=== PATIENT | male | born 1965 | race Caucasian/White ===

== ENCOUNTER 2023-10-06 16:00 | Inpatient (IN) | payer MEDICAID, OTHER ==
[~2023-10-06] VITALS: Ht 177.8 cm; Wt 74.8 kg
[2023-10-06 17:20] LABS: BASOPHILS % (AUTO) 1.4 % (0.0-2.0); EOSINOPHILS % (AUTO) 0.5 % (1.0-6.0); HEMATOCRIT 43.1 % (41-53); HEMOGLOBIN 14.8 g/dL (13.5-17.5); LYMPHOCYTES # (AUTO) 2.2 K/uL (1.0-4.8); LYMPHOCYTES % (AUTO) 32.2 % (22.0-44.0); MEAN CORPUSCULAR HEMOGLOBIN 31.9 pg (26.0-34.0); MEAN CORPUSCULAR HGB CONC 34.3 G/dL (31.0-37.0); MEAN CORPUSCULAR VOLUME 93 fL (80-100); MONOCYTES # (AUTO) 0.6 K/uL (0.1-1.0); NEUTROPHILS % (AUTO) 57.9 % (40.0-70.0); PLATELET COUNT (AUTO) 205 K/uL (150-450); RED BLOOD CELL COUNT(AUTO) 4.62 MIL/uL (4.50-5.90); RED CELL DISTRIBUTION WIDTH 13.5 % (11.5-14.5)
[2023-10-06] MEDS: OLANZapine 5 MG RAPDIS TABLET PO PRN (17:21)
[2023-10-06] MEDS: LORazepam 2 MG TABLET PO ONE (17:21)
[2023-10-06 17:31] LABS: ANION GAP 11 mmol/L (8-16); CALCIUM, TOTAL 8.6 mg/dL (8.8-10.5); CARBON DIOXIDE 26 mmol/L (22-29); CHLORIDE 104 mmol/L (98-107); CREATININE 0.75 mg/dL (0.60-1.30); GLOMERULAR FILTR. RATE CALC > 60 mL/min (>60); GLUCOSE,RANDOM 84 mg/dL (70-110); POTASSIUM 4.7 mmol/L (3.5-5.1); SODIUM SERUM 140 mmol/L (136-145); UREA NITROGEN, BLOOD 16 mg/dL (7-18)
[2023-10-06 17:37] LABS: ALANINE AMINOTRANSFERASE 33 U/L (12-78); ALKALINE PHOSPHATASE 75 U/L (46-116); ASPARTATE AMINOTRANSFERASE 41 U/L (15-37); BILIRUBIN,TOTAL 0.6 mg/dL (0.1-1.0); LIPASE 18 U/L (16-77); TOTAL PROTEIN, SERUM 7.7 g/dL (6.4-8.2)
[2023-10-06 17:38] LABS: ALCOHOL, BLOOD (SERUM) < 3 mg/dL (0-10)
[2023-10-06 17:39] LABS: LACTIC ACID 1.6 mmol/L (0.4-2.0)
[2023-10-06 17:55] LABS: APPEARANCE,URINE CLEAR (CLEAR); BILIRUBIN,URINE NEGATIVE (NEGATIVE); COLOR,URINE YELLOW (YELLOW); GLUCOSE, URINE (UA) NEGATIVE (NEGATIVE); KETONES,URINE NEGATIVE (NEGATIVE); LEUKOCYTE ESTERASE ,URINE NEGATIVE (NEGATIVE); NITRATE,URINE NEGATIVE (NEGATIVE); OCCULT BLOOD,URINE NEGATIVE (NEGATIVE); PROTEIN,URINE NEGATIVE (NEGATIVE); SPECIFIC GRAVITIY, URINE 1.024 (1.003-1.030); UROBILINOGEN,URINE <=1.0 mg/dL (<=1.0)
[2023-10-06 18:02] LABS: AMPHET/METH SCREEN,URINE NEGATIVE (NEGATIVE); BARBITURATE SCREEN, URINE POSITIVE (NEGATIVE); BENZODIAZEPINES SCREEN,URINE NEGATIVE (NEGATIVE); CANNABINOID SCREEN,URINE NEGATIVE (NEGATIVE); COCAINE SCREEN,URINE NEGATIVE (NEGATIVE); METHADONE SCREEN, URINE NEGATIVE (NEGATIVE); OPIATE SCREEN,URINE NEGATIVE (NEGATIVE); PHENCYCLIDINE SCREEN,URINE NEGATIVE (NEGATIVE)
[2023-10-06 18:03] LABS: ALCOHOL, URINE DRUG SCREEN NEGATIVE (NEGATIVE)
[2023-10-06 19:09] LABS: COVID AG,FIA SOURCE NASAL SWAB
[2023-10-06 19:47] LABS: SARS-COV2 (COVID) ANTIGEN,FIA Negative (Negative)
[2023-10-07] MEDS ORDERED: MAGNESIUM HYDROXIDE SUSPENSION 30 ML UDCUP PO PRN (12:45)
[2023-10-07] MEDS ORDERED: IBUPROFEN 400 MG TABLET PO PRN (12:45)
[2023-10-07] MEDS ORDERED: NICOTINE 14 MG/24 HOUR PATCH TD PRN (12:45)
[2023-10-07] MEDS ORDERED: GuaiFENesin/D-METHORPHAN [SUGAR-FREE] 200-20MG/10 ML SYRUP UDCUP PO PRN (12:45)
[2023-10-07] MEDS ORDERED: LOPERAMIDE HCL 2 MG CAPSULE PO PRN (12:45)
[2023-10-07] MEDS ORDERED: ACETAMINOPHEN 325 MG TABLET PO PRN (12:45)
[2023-10-07] MEDS ORDERED: ALBUTEROL SULFATE HFA 90 MCG/PUFF 8 GM INHALER IH PRN (12:45)
[2023-10-07] MEDS ORDERED: CloNIDine HCL 0.1 MG TABLET PO PRN (12:45)
[2023-10-07] MEDS ORDERED: PETROLATUM,WHITE 28 GM JELLY TP PRN (12:45)
[2023-10-07] MEDS ORDERED: DOCUSATE SODIUM 100 MG CAPSULE PO PRN (12:45)
[2023-10-07] MEDS ORDERED: MAG HYDROX/ALUMINUM HYD/SIMETH ES 30 ML SUSPENSION UDCUP PO PRN (12:45)
[2023-10-07] MEDS ORDERED: ONDANSETRON HCL 4 MG TABLET PO PRN (12:45)
[2023-10-07] MEDS: LORazepam 2 MG TABLET PO PRN (12:58)
[2023-10-07 14:36] VITALS: BP 120/87; PULSE 105; RESP 18; TEMP 98
[2023-10-07 17:02] VITALS: BP 123/66; PULSE 75; RESP 16; TEMP 97.9
[2023-10-07 17:08] VITALS: BP 123/66; PULSE 75; RESP 16; TEMP 97.9; O2SAT 95
[2023-10-07 20:36] VITALS: BP 108/75; PULSE 84; RESP 16; TEMP 97.8; O2SAT 95
[2023-10-07 21:24] VITALS: BP 108/75; PULSE 84; RESP 16; TEMP 97.1
[2023-10-08 08:11] VITALS: BP 113/65; PULSE 74; RESP 17; TEMP 97.8; O2SAT 98
[2023-10-08 08:32] LABS: BASOPHILS % (AUTO) 0.9 % (0.0-2.0); EOSINOPHILS % (AUTO) 2.2 % (1.0-6.0); HEMATOCRIT 42.9 % (41-53); HEMOGLOBIN 15.3 g/dL (13.5-17.5); LYMPHOCYTES # (AUTO) 1.8 K/uL (1.0-4.8); LYMPHOCYTES % (AUTO) 32.6 % (22.0-44.0); MEAN CORPUSCULAR HEMOGLOBIN 32.7 pg (26.0-34.0); MEAN CORPUSCULAR HGB CONC 35.7 G/dL (31.0-37.0); MEAN CORPUSCULAR VOLUME 92 fL (80-100); MONOCYTES # (AUTO) 0.5 K/uL (0.1-1.0); MONOCYTES % (AUTO) 9.2 % (2.0-9.0); NEUTROPHILS % (AUTO) 55.1 % (40.0-70.0); PLATELET COUNT (AUTO) 215 K/uL (150-450); RED BLOOD CELL COUNT(AUTO) 4.68 MIL/uL (4.50-5.90); RED CELL DISTRIBUTION WIDTH 13.3 % (11.5-14.5); WHITE BLOOD COUNT (AUTO) 5.4 K/uL (4.5-11.0)
[2023-10-08 08:38] LABS: HEMOGLOBIN A1C 5.4 % (3.8-5.6)
[2023-10-08 08:56] LABS: CHOL/HDL RATIO 2.2 (4.2-7.3); THYROID STIMULATING HORMONE 1.11 uIU/mL (0.36-3.74)
[2023-10-08] MEDS: SERTRALINE HCL 50 MG TABLET PO SCH (09:48)
[2023-10-08 16:32] VITALS: BP 104/76; PULSE 82; RESP 18; TEMP 98.1
[2023-10-08 20:14] VITALS: BP 107/56; PULSE 77; RESP 18; TEMP 97.3; O2SAT 97
[2023-10-08] MEDS: ZOLPIDEM TARTRATE 10 MG TABLET PO PRN (21:17)
[2023-10-09 08:45] VITALS: BP 107/60; PULSE 68; RESP 17; TEMP 97.9; O2SAT 97
[2023-10-09] MEDS: APIXABAN 5 MG TABLET PO SCH (17:13)
[2023-10-09 20:20] VITALS: BP 115/65; PULSE 61; RESP 18; TEMP 97.6; O2SAT 95
[2023-10-09] MEDS: ATORVASTATIN CALCIUM 10 MG TABLET PO SCH (21:11)
[2023-10-10 08:14] VITALS: BP 123/76; PULSE 89; RESP 19; TEMP 97.7; O2SAT 96
[2023-10-10] MEDS: TAMSULOSIN HCL 0.4 MG CAPSULE PO SCH (08:21)
[2023-10-10] MEDS: HydrOXYzine PAMOATE 50 MG CAPSULE PO PRN (16:03)
[2023-10-10] MEDS: BusPIRone HCL 10 MG TABLET PO SCH (16:08)
[2023-10-10] MEDS: RisperiDONE 1 MG TABLET PO SCH (16:08)
[2023-10-10] MEDS: GABAPENTIN 300 MG CAPSULE PO SCH (16:08)
[2023-10-10 20:21] VITALS: BP 147/82; PULSE 79; RESP 17; TEMP 97.6; O2SAT 97
[2023-10-11 08:17] VITALS: BP 110/73; PULSE 88; RESP 18; TEMP 97.2; O2SAT 95
[2023-10-11] MEDS: GABAPENTIN 300 MG CAPSULE PO SCH (13:17)
[2023-10-11] MEDS ORDERED: GABA-1181 PO (15:15)
[2023-10-11] MEDS ORDERED: RISP-31 PO (15:17)
[2023-10-11] MEDS ORDERED: BUSP10TA23 PO (15:17)
[2023-10-11] MEDS ORDERED: SERT-158 PO (15:17)
[2023-10-11] MEDS ORDERED: TAMS0.4C94 PO (15:19)
[2023-10-11] MEDS ORDERED: ATOR10TA PO (15:20)
[2023-10-11] MEDS ORDERED: APIX5TAB PO (15:20)
[2023-10-12] MEDS ORDERED: RISP1TAB48 PO (08:25)
[2023-10-12] MEDS ORDERED: GABA-1181 PO (08:25)
[2023-10-12] MEDS ORDERED: TAMS0.4C94 PO (08:25)
[2023-10-12] MEDS ORDERED: ATOR10TA69 PO (08:25)
[2023-10-12] MEDS ORDERED: BUSP10TA23 PO (08:25)
[2023-10-12] MEDS ORDERED: APIX5TAB PO (08:25)
[2023-10-12] MEDS ORDERED: SERT-439 PO (08:25)
== END 2023-10-11 16:30 | disposition home or self-care (01) | DRG 753 ==
LOC: EMS 16:00 → B2X 10-07 11:12 → B2S 10-07 16:36
PROVIDERS: ADMIT Psychiatry & Neurology Child & Adolescent Psychiatry; ATTEND Psychiatry & Neurology Child & Adolescent Psychiatry
PROC: GZHZZZZ Group Psychotherapy (ICD-10-PCS; principal; 2023-10-08)
PROC: GZ52ZZZ Individual Psychotherapy, Cognitive (ICD-10-PCS; 2023-10-08)
DX: F31.4 Bipolar disorder, current episode depressed, severe, without psychotic features (principal); R45.851 Suicidal ideations; F10.10 Alcohol abuse, uncomplicated; I48.91 Unspecified atrial fibrillation; N40.0 Benign prostatic hyperplasia without lower urinary tract symptoms; Z20.822 Contact with and (suspected) exposure to COVID-19; F41.9 Anxiety disorder, unspecified; G47.00 Insomnia, unspecified; R74.01 Elevation of levels of liver transaminase levels; Z79.01 Long term (current) use of anticoagulants; Z79.899 Other long term (current) drug therapy; Z87.891 Personal history of nicotine dependence; Z91.51 Personal history of suicidal behavior
CPT/HCPCS: 80053; 80061; 80307; 81003; 83036; 83605; 83690; 84443; 85025; 99285; G0480

== ENCOUNTER 2023-10-30 11:33 | Inpatient (IN) | payer MEDICAID, OTHER ==
[~2023-10-30] VITALS: Ht 185.4 cm; Wt 74.1 kg
[~2023-10-30 11:33] MED LIST: APIX5TAB PO; ATOR10TA PO; ATOR10TA69 PO; BUSP10TA23 PO; GABA-1181 PO; RISP-31 PO; RISP1TAB48 PO; SERT-158 PO; SERT-439 PO; TAMS0.4C94 PO
[2023-10-30] MEDS: LORazepam 1 MG TABLET PO ONE (12:06)
[2023-10-30 12:16] LABS: COVID AG,FIA SOURCE NASAL SWAB
[2023-10-30 12:37] LABS: PH,URINE DRUG SCREEN 7.5 (5.0-8.0)
[2023-10-30 12:42] LABS: ALCOHOL, URINE DRUG SCREEN NEGATIVE (NEGATIVE); AMPHET/METH SCREEN,URINE NEGATIVE (NEGATIVE); BARBITURATE SCREEN, URINE POSITIVE (NEGATIVE); BENZODIAZEPINES SCREEN,URINE POSITIVE (NEGATIVE); CANNABINOID SCREEN,URINE NEGATIVE (NEGATIVE); COCAINE SCREEN,URINE NEGATIVE (NEGATIVE); METHADONE SCREEN, URINE NEGATIVE (NEGATIVE); OPIATE SCREEN,URINE NEGATIVE (NEGATIVE); PHENCYCLIDINE SCREEN,URINE NEGATIVE (NEGATIVE)
[2023-10-30 13:02] LABS: SARS-COV2 (COVID) ANTIGEN,FIA Negative (Negative)
[2023-10-30] MEDS ORDERED: ACETAMINOPHEN 325 MG TABLET PO PRN (13:15)
[2023-10-30 13:51] LABS: BASOPHILS % (AUTO) 0.7 % (0.0-2.0); EOSINOPHILS % (AUTO) 2.2 % (1.0-6.0); HEMATOCRIT 41.7 % (41-53); HEMOGLOBIN 14.7 g/dL (13.5-17.5); LYMPHOCYTES # (AUTO) 1.8 K/uL (1.0-4.8); MEAN CORPUSCULAR HEMOGLOBIN 32.2 pg (26.0-34.0); MEAN CORPUSCULAR HGB CONC 35.2 G/dL (31.0-37.0); MEAN CORPUSCULAR VOLUME 92 fL (80-100); MONOCYTES # (AUTO) 0.4 K/uL (0.1-1.0); MONOCYTES % (AUTO) 6.5 % (2.0-9.0); NEUTROPHILS # (AUTO) 3.8 K/uL (1.8-7.7); NEUTROPHILS % (AUTO) 61.6 % (40.0-70.0); PLATELET COUNT (AUTO) 233 K/uL (150-450); RED BLOOD CELL COUNT(AUTO) 4.56 MIL/uL (4.50-5.90); WHITE BLOOD COUNT (AUTO) 6.2 K/uL (4.5-11.0)
[2023-10-30 13:59] LABS: ANION GAP 9 mmol/L (8-16); CALCIUM, TOTAL 9.2 mg/dL (8.8-10.5); CARBON DIOXIDE 25 mmol/L (22-29); CHLORIDE 106 mmol/L (98-107); CREATININE 0.92 mg/dL (0.60-1.30); GLOMERULAR FILTR. RATE CALC > 60 mL/min (>60); GLUCOSE,RANDOM 113 mg/dL (70-110); POTASSIUM 3.8 mmol/L (3.5-5.1); SODIUM SERUM 140 mmol/L (136-145); UREA NITROGEN, BLOOD 15 mg/dL (7-18)
[2023-10-30 14:05] LABS: ALANINE AMINOTRANSFERASE 25 U/L (12-78); ALBUMIN 3.6 g/dL (3.4-5.0); ALKALINE PHOSPHATASE 76 U/L (46-116); ASPARTATE AMINOTRANSFERASE 23 U/L (15-37); BILIRUBIN,TOTAL 0.5 mg/dL (0.1-1.0); TOTAL PROTEIN, SERUM 6.7 g/dL (6.4-8.2); VALPROIC ACID 4 mcg/mL (50-100)
[2023-10-30 14:13] LABS: ALCOHOL, BLOOD (SERUM) < 3 mg/dL (0-10)
[2023-10-30 18:27] VITALS: BP 97/61; PULSE 74; RESP 18; TEMP 96.6; O2SAT 97
[2023-10-30] MEDS: ATORVASTATIN CALCIUM 10 MG TABLET PO SCH (20:47)
[2023-10-30 21:23] VITALS: BP 103/62; PULSE 68; RESP 16; TEMP 97.8; O2SAT 98
[2023-10-31 08:12] LABS: CHOL/HDL RATIO 2.5 (4.2-7.3); FREE T4 (FREE THYROXINE) 1.13 ng/dL (0.76-1.46); T4 (THYROXINE) 7.5 mcg/dL (4.7-13.3); THYROID STIMULATING HORMONE 0.65 uIU/mL (0.36-3.74)
[2023-10-31] MEDS: APIXABAN 5 MG TABLET PO SCH (08:23)
[2023-10-31] MEDS: LORazepam 2 MG TABLET PO PRN (08:23)
[2023-10-31] MEDS: GABAPENTIN 300 MG CAPSULE PO SCH (08:23)
[2023-10-31] MEDS: TAMSULOSIN HCL 0.4 MG CAPSULE PO SCH (08:23)
[2023-10-31 08:29] VITALS: BP 114/60; PULSE 107; RESP 16; TEMP 98.4; O2SAT 95
[2023-10-31] MEDS: SERTRALINE HCL 50 MG TABLET PO SCH (09:18)
[2023-10-31] MEDS: RisperiDONE 1 MG TABLET PO SCH (09:18)
[2023-10-31] MEDS: BusPIRone HCL 10 MG TABLET PO SCH (09:18)
[2023-10-31 18:07] VITALS: BP 101/60; PULSE 75; RESP 18; TEMP 98.2; O2SAT 95
[2023-10-31 21:04] VITALS: BP 101/60; PULSE 75; RESP 18; TEMP 98.2; O2SAT 95
[2023-11-01 08:54] VITALS: BP 102/59; PULSE 84; RESP 17; TEMP 97.3; O2SAT 96
[2023-11-01 21:51] VITALS: BP 119/66; PULSE 106; RESP 17; TEMP 96.7; O2SAT 91
[2023-11-02 08:00] VITALS: BP 124/72; PULSE 96; RESP 17; TEMP 98.5; O2SAT 96
[2023-11-02 08:39] VITALS: BP 123/78; PULSE 96; RESP 17; TEMP 97.5; O2SAT 96
[2023-11-02 09:36] LABS: APPEARANCE,URINE CLEAR (CLEAR); BILIRUBIN,URINE NEGATIVE (NEGATIVE); COLOR,URINE COLORLESS (YELLOW); GLUCOSE, URINE (UA) NEGATIVE (NEGATIVE); KETONES,URINE NEGATIVE (NEGATIVE); LEUKOCYTE ESTERASE ,URINE NEGATIVE (NEGATIVE); NITRATE,URINE NEGATIVE (NEGATIVE); OCCULT BLOOD,URINE NEGATIVE (NEGATIVE); PROTEIN,URINE NEGATIVE (NEGATIVE); SPECIFIC GRAVITIY, URINE 1.005 (1.003-1.030); UROBILINOGEN,URINE <=1.0 mg/dL (<=1.0)
[2023-11-02] MEDS ORDERED: MAG HYDROX/ALUMINUM HYD/SIMETH ES 30 ML SUSPENSION UDCUP PO PRN (10:15)
[2023-11-02] MEDS ORDERED: IBUPROFEN 400 MG TABLET PO PRN (10:15)
[2023-11-02] MEDS ORDERED: DOCUSATE SODIUM 100 MG CAPSULE PO PRN (10:15)
[2023-11-02] MEDS ORDERED: NICOTINE 14 MG/24 HOUR PATCH TD PRN (10:15)
[2023-11-02] MEDS ORDERED: MAGNESIUM HYDROXIDE SUSPENSION 30 ML UDCUP PO PRN (10:15)
[2023-11-02] MEDS ORDERED: PETROLATUM,WHITE 28 GM JELLY TP PRN (10:15)
[2023-11-02] MEDS ORDERED: GuaiFENesin/D-METHORPHAN [SUGAR-FREE] 200-20MG/10 ML SYRUP UDCUP PO PRN (10:15)
[2023-11-02] MEDS ORDERED: LOPERAMIDE HCL 2 MG CAPSULE PO PRN (10:15)
[2023-11-02] MEDS ORDERED: ACETAMINOPHEN 325 MG TABLET PO PRN (10:15)
[2023-11-02] MEDS ORDERED: ONDANSETRON HCL 4 MG TABLET PO PRN (10:15)
[2023-11-02] MEDS ORDERED: CloNIDine HCL 0.1 MG TABLET PO PRN (10:15)
[2023-11-02] MEDS ORDERED: ALBUTEROL SULFATE HFA 90 MCG/PUFF 8 GM INHALER IH PRN (10:15)
[2023-11-02 20:18] VITALS: BP 115/89; PULSE 78; RESP 17; TEMP 97.8; O2SAT 95
[2023-11-03 08:56] LABS: BASOPHILS % (AUTO) 0.5 % (0.0-2.0); HEMATOCRIT 46.7 % (41-53); HEMOGLOBIN 16.2 g/dL (13.5-17.5); LYMPHOCYTES # (AUTO) 1.8 K/uL (1.0-4.8); LYMPHOCYTES % (AUTO) 33.1 % (22.0-44.0); MEAN CORPUSCULAR HEMOGLOBIN 31.8 pg (26.0-34.0); MEAN CORPUSCULAR HGB CONC 34.8 G/dL (31.0-37.0); MEAN CORPUSCULAR VOLUME 91 fL (80-100); MONOCYTES # (AUTO) 0.4 K/uL (0.1-1.0); MONOCYTES % (AUTO) 7.7 % (2.0-9.0); NEUTROPHILS # (AUTO) 3.1 K/uL (1.8-7.7); NEUTROPHILS % (AUTO) 56.7 % (40.0-70.0); PLATELET COUNT (AUTO) 242 K/uL (150-450); RED BLOOD CELL COUNT(AUTO) 5.11 MIL/uL (4.50-5.90); RED CELL DISTRIBUTION WIDTH 12.7 % (11.5-14.5); WHITE BLOOD COUNT (AUTO) 5.5 K/uL (4.5-11.0)
[2023-11-03 09:04] LABS: ALANINE AMINOTRANSFERASE 31 U/L (12-78); ALBUMIN 4.1 g/dL (3.4-5.0); ALKALINE PHOSPHATASE 75 U/L (46-116); ANION GAP 9 mmol/L (8-16); ASPARTATE AMINOTRANSFERASE 20 U/L (15-37); BILIRUBIN,TOTAL 0.6 mg/dL (0.1-1.0); CALCIUM, TOTAL 9.9 mg/dL (8.8-10.5); CARBON DIOXIDE 28 mmol/L (22-29); CHLORIDE 104 mmol/L (98-107); CHOL/HDL RATIO 2.4 (4.2-7.3); CHOLESTEROL 163 mg/dL (131-200); CREATININE 0.74 mg/dL (0.60-1.30); GLOMERULAR FILTR. RATE CALC > 60 mL/min (>60); GLUCOSE,RANDOM 88 mg/dL (70-110); HDL CHOLESTEROL 67 mg/dL (40-60); LDL CHOL (CALC.) 71 mg/dL (0-130); POTASSIUM 3.9 mmol/L (3.5-5.1); SODIUM SERUM 141 mmol/L (136-145); THYROID STIMULATING HORMONE 1.18 uIU/mL (0.36-3.74); TOTAL PROTEIN, SERUM 7.6 g/dL (6.4-8.2); TRIGLYCERIDES 123 mg/dL (15-150); UREA NITROGEN, BLOOD 15 mg/dL (7-18)
[2023-11-03 09:12] LABS: HEMOGLOBIN A1C 5.8 % (3.8-5.6)
[2023-11-03 09:22] VITALS: BP 138/82; PULSE 91; RESP 14; TEMP 97.2; O2SAT 98
[2023-11-03 20:21] VITALS: BP 112/73; PULSE 77; RESP 16; TEMP 98.6; O2SAT 96
[2023-11-04 08:54] VITALS: BP 116/64; PULSE 81; RESP 17; TEMP 97.7; O2SAT 96
[2023-11-04 20:12] VITALS: BP 108/72; PULSE 80; RESP 17; TEMP 98.6; O2SAT 97
[2023-11-04] MEDS: ZOLPIDEM TARTRATE 10 MG TABLET PO PRN (20:25)
[2023-11-05 08:21] VITALS: BP 100/74; PULSE 86; RESP 14; TEMP 97.7; O2SAT 96
[2023-11-05 20:37] VITALS: BP 117/74; PULSE 77; RESP 16; TEMP 98.4; O2SAT 98
[2023-11-06 08:30] VITALS: BP 106/75; PULSE 85; RESP 17; TEMP 97.4
[2023-11-06 20:33] VITALS: BP 131/80; PULSE 70; RESP 18; TEMP 96.7; O2SAT 96
[2023-11-07 08:11] VITALS: RESP 15
== END 2023-11-07 08:15 | disposition home or self-care (01) | DRG 753 ==
LOC: EMS 11:33 → CANBEDREQ 13:05 → B3A 14:48 → B2S 11-06 10:24
PROVIDERS: ADMIT Psychiatry & Neurology Child & Adolescent Psychiatry; ATTEND Psychiatry & Neurology Child & Adolescent Psychiatry
PROC: GZ51ZZZ Individual Psychotherapy, Behavioral (ICD-10-PCS; principal; 2023-11-01)
PROC: GZHZZZZ Group Psychotherapy (ICD-10-PCS; 2023-11-01)
DX: F31.4 Bipolar disorder, current episode depressed, severe, without psychotic features (principal); I48.20 Chronic atrial fibrillation, unspecified; R45.851 Suicidal ideations; F10.20 Alcohol dependence, uncomplicated; E78.5 Hyperlipidemia, unspecified; Z20.822 Contact with and (suspected) exposure to COVID-19; N40.0 Benign prostatic hyperplasia without lower urinary tract symptoms; I10 Essential (primary) hypertension; Z87.891 Personal history of nicotine dependence
CPT/HCPCS: 80053; 80061; 80164; 80307; 81003; 83036; 84436; 84439; 84443; 85025; 86592; 99285; G0480

== ENCOUNTER 2023-11-15 16:38 | Inpatient (IN) | payer MEDICAID ==
[~2023-11-15] VITALS: Ht 185.4 cm; Wt 71.3 kg
[~2023-11-15 16:38] MED LIST changes: -ATOR10TA PO; -RISP-31 PO; -SERT-158 PO
[2023-11-15 20:48] VITALS: BP 98/73; PULSE 86; RESP 18; TEMP 97.7; O2SAT 98
[2023-11-15] MEDS ORDERED: NICOTINE 14 MG/24 HOUR PATCH TD PRN (23:00)
[2023-11-16] MEDS: APIXABAN 5 MG TABLET PO SCH (08:08)
[2023-11-16] MEDS: TAMSULOSIN HCL 0.4 MG CAPSULE PO SCH (08:08)
[2023-11-16] MEDS: LORazepam 2 MG TABLET PO PRN (08:17)
[2023-11-16 08:32] VITALS: BP 100/71; PULSE 95; RESP 17; TEMP 97.6; O2SAT 96
[2023-11-16 09:33] LABS: BASOPHILS % (AUTO) 0.9 % (0.0-2.0); EOSINOPHILS % (AUTO) 1.6 % (1.0-6.0); HEMATOCRIT 46.4 % (41-53); HEMOGLOBIN 15.9 g/dL (13.5-17.5); LYMPHOCYTES # (AUTO) 1.1 K/uL (1.0-4.8); LYMPHOCYTES % (AUTO) 20.1 % (22.0-44.0); MEAN CORPUSCULAR HGB CONC 34.4 G/dL (31.0-37.0); MEAN CORPUSCULAR VOLUME 93 fL (80-100); MONOCYTES # (AUTO) 0.4 K/uL (0.1-1.0); MONOCYTES % (AUTO) 7.3 % (2.0-9.0); NEUTROPHILS # (AUTO) 3.7 K/uL (1.8-7.7); NEUTROPHILS % (AUTO) 70.1 % (40.0-70.0); PLATELET COUNT (AUTO) 230 K/uL (150-450); RED BLOOD CELL COUNT(AUTO) 4.98 MIL/uL (4.50-5.90); RED CELL DISTRIBUTION WIDTH 12.8 % (11.5-14.5); WHITE BLOOD COUNT (AUTO) 5.3 K/uL (4.5-11.0)
[2023-11-16 09:51] LABS: ALANINE AMINOTRANSFERASE 31 U/L (12-78); ALBUMIN 3.9 g/dL (3.4-5.0); ALKALINE PHOSPHATASE 65 U/L (46-116); ANION GAP 8 mmol/L (8-16); ASPARTATE AMINOTRANSFERASE 20 U/L (15-37); BILIRUBIN,TOTAL 0.5 mg/dL (0.1-1.0); CALCIUM, TOTAL 9.7 mg/dL (8.8-10.5); CARBON DIOXIDE 29 mmol/L (22-29); CHLORIDE 104 mmol/L (98-107); CHOL/HDL RATIO 2.1 (4.2-7.3); CHOLESTEROL 132 mg/dL (131-200); CREATININE 0.82 mg/dL (0.60-1.30); FREE T4 (FREE THYROXINE) 1.13 ng/dL (0.76-1.46); GLOMERULAR FILTR. RATE CALC > 60 mL/min (>60); GLUCOSE,RANDOM 135 mg/dL (70-110); HDL CHOLESTEROL 62 mg/dL (40-60); HEMOGLOBIN A1C 5.4 % (3.8-5.6); LDL CHOL (CALC.) 49 mg/dL (0-130); POTASSIUM 3.8 mmol/L (3.5-5.1); SODIUM SERUM 141 mmol/L (136-145); THYROID STIMULATING HORMONE 0.93 uIU/mL (0.36-3.74); TOTAL PROTEIN, SERUM 7.2 g/dL (6.4-8.2); TRIGLYCERIDES 107 mg/dL (15-150); UREA NITROGEN, BLOOD 15 mg/dL (7-18)
[2023-11-16] MEDS ORDERED: MAGNESIUM HYDROXIDE SUSPENSION 30 ML UDCUP PO PRN (10:30)
[2023-11-16] MEDS ORDERED: ACETAMINOPHEN 325 MG TABLET PO PRN (10:30)
[2023-11-16] MEDS ORDERED: ONDANSETRON HCL 4 MG TABLET PO PRN (10:30)
[2023-11-16] MEDS ORDERED: DOCUSATE SODIUM 100 MG CAPSULE PO PRN (10:30)
[2023-11-16] MEDS ORDERED: CloNIDine HCL 0.1 MG TABLET PO PRN (10:30)
[2023-11-16] MEDS ORDERED: GuaiFENesin/D-METHORPHAN [SUGAR-FREE] 200-20MG/10 ML SYRUP UDCUP PO PRN (10:30)
[2023-11-16] MEDS ORDERED: NICOTINE 14 MG/24 HOUR PATCH TD PRN (10:30)
[2023-11-16] MEDS ORDERED: PETROLATUM,WHITE 28 GM JELLY TP PRN (10:30)
[2023-11-16] MEDS ORDERED: ALBUTEROL SULFATE HFA 90 MCG/PUFF 8 GM INHALER IH PRN (10:30)
[2023-11-16] MEDS ORDERED: LOPERAMIDE HCL 2 MG CAPSULE PO PRN (10:30)
[2023-11-16] MEDS ORDERED: MAG HYDROX/ALUMINUM HYD/SIMETH ES 30 ML SUSPENSION UDCUP PO PRN (10:30)
[2023-11-16] MEDS: SERTRALINE HCL 50 MG TABLET PO SCH (12:53)
[2023-11-16] MEDS: GABAPENTIN 300 MG CAPSULE PO SCH (12:53)
[2023-11-16] MEDS: PNEUMOCOCCAL VACCINE POLYVALENT 0.5 ML SYRINGE [PPSV23] IM. ONE (12:58)
[2023-11-16] MEDS: RisperiDONE 1 MG TABLET PO SCH (16:43)
[2023-11-16] MEDS: BusPIRone HCL 10 MG TABLET PO SCH (16:43)
[2023-11-16] MEDS: ATORVASTATIN CALCIUM 10 MG TABLET PO SCH (20:21)
[2023-11-16 21:55] VITALS: BP 116/71; PULSE 72; RESP 18; TEMP 97.4; O2SAT 98
[2023-11-17 08:17] LABS: HEMOGLOBIN A1C 5.3 % (3.8-5.6)
[2023-11-17 08:47] LABS: CHOL/HDL RATIO 2.4 (4.2-7.3); THYROID STIMULATING HORMONE 0.82 uIU/mL (0.36-3.74)
[2023-11-17 13:30] VITALS: BP 112/68; PULSE 83; RESP 17; TEMP 97.8; O2SAT 98
[2023-11-17 20:56] VITALS: BP 110/74; PULSE 64; RESP 18; TEMP 97.5; O2SAT 95
[2023-11-18 08:25] VITALS: BP 109/67; PULSE 76; RESP 14; TEMP 97.6; O2SAT 97
[2023-11-18 20:40] VITALS: BP 109/76; PULSE 62; RESP 17; TEMP 97.5; O2SAT 97
[2023-11-19 08:52] VITALS: BP 124/70; PULSE 101; RESP 17; TEMP 97.5; O2SAT 95
[2023-11-19 17:28] VITALS: BP 131/81; PULSE 78; RESP 17; TEMP 97.7; O2SAT 97
[2023-11-19 20:37] VITALS: BP 131/81; PULSE 78; RESP 17; TEMP 97.7; O2SAT 96
[2023-11-20 09:16] VITALS: BP 135/83; PULSE 84; RESP 18; TEMP 97.1; O2SAT 98
[2023-11-20 20:20] VITALS: BP 134/85; PULSE 108; RESP 16; TEMP 97.3; O2SAT 95
[2023-11-20] MEDS: ZOLPIDEM TARTRATE 10 MG TABLET PO PRN (22:14)
[2023-11-21 08:06] LABS: APPEARANCE,URINE CLEAR (CLEAR); BILIRUBIN,URINE NEGATIVE (NEGATIVE); COLOR,URINE LIGHT YELLOW (YELLOW); GLUCOSE, URINE (UA) NEGATIVE (NEGATIVE); KETONES,URINE NEGATIVE (NEGATIVE); LEUKOCYTE ESTERASE ,URINE NEGATIVE (NEGATIVE); NITRATE,URINE NEGATIVE (NEGATIVE); OCCULT BLOOD,URINE NEGATIVE (NEGATIVE); PH,URINE 7.5 (5.0-8.0); PH,URINE DRUG SCREEN 7.5 (5.0-8.0); PROTEIN,URINE NEGATIVE (NEGATIVE); SPECIFIC GRAVITIY, URINE 1.018 (1.003-1.030); UROBILINOGEN,URINE <=1.0 mg/dL (<=1.0)
[2023-11-21 08:19] LABS: ALCOHOL, URINE DRUG SCREEN NEGATIVE (NEGATIVE); AMPHET/METH SCREEN,URINE NEGATIVE (NEGATIVE); BARBITURATE SCREEN, URINE NEGATIVE (NEGATIVE); BENZODIAZEPINES SCREEN,URINE NEGATIVE (NEGATIVE); CANNABINOID SCREEN,URINE NEGATIVE (NEGATIVE); COCAINE SCREEN,URINE NEGATIVE (NEGATIVE); METHADONE SCREEN, URINE NEGATIVE (NEGATIVE); OPIATE SCREEN,URINE NEGATIVE (NEGATIVE); PHENCYCLIDINE SCREEN,URINE NEGATIVE (NEGATIVE)
[2023-11-21 08:47] VITALS: BP 125/71; PULSE 69; RESP 17; TEMP 97.8; O2SAT 95
[2023-11-21 21:35] VITALS: BP 117/75; PULSE 97; RESP 18; TEMP 97.5; O2SAT 95
[2023-11-22 08:50] VITALS: BP 113/68; PULSE 76; RESP 15; TEMP 97.9; O2SAT 96
[2023-11-22] MEDS: OLANZapine 5 MG RAPDIS TABLET PO PRN (10:06)
[2023-11-22 20:34] VITALS: BP 114/71; PULSE 76; RESP 16; TEMP 97.9; O2SAT 96
[2023-11-23 09:06] VITALS: BP 115/77; PULSE 66; RESP 18; TEMP 98.1; O2SAT 98
[2023-11-23 20:43] VITALS: BP 115/84; PULSE 71; RESP 18; TEMP 97.3; O2SAT 97
[2023-11-23] MEDS: TraZODone HCL 50 MG TABLET PO SCH (20:52)
[2023-11-24 08:26] VITALS: BP 120/73; PULSE 68; RESP 16; TEMP 97.7; O2SAT 98
[2023-11-24 09:45] VITALS: BP 127/73; PULSE 68; RESP 16; TEMP 97.7; O2SAT 98
[2023-11-24 20:49] VITALS: BP 122/78; PULSE 58; RESP 16; TEMP 97.8; O2SAT 96
[2023-11-25 10:49] VITALS: BP 118/65; PULSE 76; RESP 18; TEMP 97.8; O2SAT 97
[2023-11-25] MEDS ORDERED: TRAZ-252 PO (14:02)
== END 2023-11-25 17:30 | disposition home or self-care (01) | DRG 753 ==
LOC: B2S 19:51
PROVIDERS: ADMIT Psychiatry & Neurology Child & Adolescent Psychiatry; ATTEND Psychiatry & Neurology Child & Adolescent Psychiatry
PROC: GZHZZZZ Group Psychotherapy (ICD-10-PCS; principal; 2023-11-16)
PROC: GZ51ZZZ Individual Psychotherapy, Behavioral (ICD-10-PCS; 2023-11-16)
DX: F31.4 Bipolar disorder, current episode depressed, severe, without psychotic features (principal); R45.851 Suicidal ideations; F22 Delusional disorders; E78.5 Hyperlipidemia, unspecified; F10.10 Alcohol abuse, uncomplicated; G47.00 Insomnia, unspecified; I10 Essential (primary) hypertension; I48.91 Unspecified atrial fibrillation; N40.0 Benign prostatic hyperplasia without lower urinary tract symptoms; F41.9 Anxiety disorder, unspecified; Z79.899 Other long term (current) drug therapy
CPT/HCPCS: 80053; 80061; 80307; 81003; 83036; 84439; 84443; 85025; 87081

== ENCOUNTER 2023-12-12 03:49 | Inpatient (IN) | payer MEDICAID, OTHER ==
[~2023-12-12] VITALS: Ht 185.4 cm; Wt 72.6 kg
[~2023-12-12 03:49] MED LIST changes: +TRAZ-252 PO
[2023-12-12] MEDS ORDERED: METO25 PO (04:30)
[2023-12-12 05:01] LABS: BASOPHILS % (AUTO) 0.9 % (0.0-2.0); EOSINOPHILS % (AUTO) 4.1 % (1.0-6.0); HEMATOCRIT 40.4 % (41-53); HEMOGLOBIN 14.1 g/dL (13.5-17.5); LYMPHOCYTES # (AUTO) 1.4 K/uL (1.0-4.8); LYMPHOCYTES % (AUTO) 19.3 % (22.0-44.0); MEAN CORPUSCULAR HEMOGLOBIN 31.8 pg (26.0-34.0); MEAN CORPUSCULAR HGB CONC 34.8 G/dL (31.0-37.0); MEAN CORPUSCULAR VOLUME 92 fL (80-100); MONOCYTES # (AUTO) 0.6 K/uL (0.1-1.0); MONOCYTES % (AUTO) 7.9 % (2.0-9.0); NEUTROPHILS # (AUTO) 5.1 K/uL (1.8-7.7); NEUTROPHILS % (AUTO) 67.8 % (40.0-70.0); PLATELET COUNT (AUTO) 286 K/uL (150-450); RED BLOOD CELL COUNT(AUTO) 4.42 MIL/uL (4.50-5.90); RED CELL DISTRIBUTION WIDTH 12.6 % (11.5-14.5); WHITE BLOOD COUNT (AUTO) 7.5 K/uL (4.5-11.0)
[2023-12-12 05:19] LABS: ANION GAP 11 mmol/L (8-16); CARBON DIOXIDE 25 mmol/L (22-29); CHLORIDE 105 mmol/L (98-107); CREATININE 0.84 mg/dL (0.60-1.30); GLOMERULAR FILTR. RATE CALC > 60 mL/min (>60); GLUCOSE,RANDOM 101 mg/dL (70-110); POTASSIUM 3.2 mmol/L (3.5-5.1); SODIUM SERUM 141 mmol/L (136-145); UREA NITROGEN, BLOOD 18 mg/dL (7-18)
[2023-12-12 05:41] LABS: ALCOHOL, BLOOD (SERUM) < 3 mg/dL (0-10)
[2023-12-12 05:50] LABS: COVID AG,FIA SOURCE NASAL SWAB
[2023-12-12 05:59] LABS: SARS-COV2 (COVID) ANTIGEN,FIA Negative (Negative)
[2023-12-12] MEDS: LORazepam 2 MG TABLET PO ONE (06:29)
[2023-12-12 07:19] LABS: ALCOHOL, URINE DRUG SCREEN NEGATIVE (NEGATIVE); AMPHET/METH SCREEN,URINE NEGATIVE (NEGATIVE); BARBITURATE SCREEN, URINE NEGATIVE (NEGATIVE); BENZODIAZEPINES SCREEN,URINE NEGATIVE (NEGATIVE); CANNABINOID SCREEN,URINE POSITIVE (NEGATIVE); COCAINE SCREEN,URINE NEGATIVE (NEGATIVE); METHADONE SCREEN, URINE NEGATIVE (NEGATIVE); OPIATE SCREEN,URINE NEGATIVE (NEGATIVE); PHENCYCLIDINE SCREEN,URINE NEGATIVE (NEGATIVE)
[2023-12-12] MEDS ORDERED: LORazepam 1 MG TABLET PO PRN (09:00)
[2023-12-12 09:47] LABS: APPEARANCE,URINE CLEAR (CLEAR); BILIRUBIN,URINE NEGATIVE (NEGATIVE); COLOR,URINE YELLOW (YELLOW); GLUCOSE, URINE (UA) NEGATIVE (NEGATIVE); KETONES,URINE NEGATIVE (NEGATIVE); LEUKOCYTE ESTERASE ,URINE NEGATIVE (NEGATIVE); NITRATE,URINE NEGATIVE (NEGATIVE); OCCULT BLOOD,URINE NEGATIVE (NEGATIVE); PROTEIN,URINE NEGATIVE (NEGATIVE); SPECIFIC GRAVITIY, URINE 1.025 (1.003-1.030); UROBILINOGEN,URINE <=1.0 mg/dL (<=1.0)
[2023-12-12 14:53] VITALS: BP 131/82; PULSE 77; RESP 18; TEMP 97.6
[2023-12-12] MEDS: APIXABAN 5 MG TABLET PO SCH (21:50)
[2023-12-12] MEDS: ATORVASTATIN CALCIUM 10 MG TABLET PO SCH (21:50)
[2023-12-12] MEDS: LORazepam 1 MG TABLET PO PRN (21:51)
[2023-12-12] MEDS: GABAPENTIN 300 MG CAPSULE PO SCH (21:51)
[2023-12-12 21:55] VITALS: BP 130/81; PULSE 76; RESP 18; TEMP 97.8; O2SAT 99
[2023-12-12 21:57] VITALS: BP 130/81; PULSE 76; RESP 18; TEMP 97.8
[2023-12-12] MEDS: ZOLPIDEM TARTRATE 10 MG TABLET PO PRN (22:15)
[2023-12-13] MEDS: TAMSULOSIN HCL 0.4 MG CAPSULE PO SCH (08:21)
[2023-12-13] MEDS: METOPROLOL TARTRATE 25 MG TABLET PO SCH (08:21)
[2023-12-13 09:38] VITALS: BP 125/83; PULSE 81; RESP 18; TEMP 97.8; O2SAT 98
[2023-12-13 09:40] VITALS: BP 125/83; PULSE 80; RESP 18; TEMP 97.8
[2023-12-13] MEDS ORDERED: PETROLATUM,WHITE 28 GM JELLY TP PRN (10:15)
[2023-12-13] MEDS ORDERED: ACETAMINOPHEN 325 MG TABLET PO PRN (10:15)
[2023-12-13] MEDS ORDERED: ALBUTEROL SULFATE HFA 90 MCG/PUFF 8 GM INHALER IH PRN (10:15)
[2023-12-13] MEDS ORDERED: CloNIDine HCL 0.1 MG TABLET PO PRN (10:15)
[2023-12-13] MEDS ORDERED: MAG HYDROX/ALUMINUM HYD/SIMETH ES 30 ML SUSPENSION UDCUP PO PRN (10:15)
[2023-12-13] MEDS ORDERED: MAGNESIUM HYDROXIDE SUSPENSION 30 ML UDCUP PO PRN (10:15)
[2023-12-13] MEDS ORDERED: LOPERAMIDE HCL 2 MG CAPSULE PO PRN (10:15)
[2023-12-13] MEDS ORDERED: OMEPRAZOLE 20 MG CAPSULE PO PRN (10:15)
[2023-12-13] MEDS ORDERED: BENZOCAINE/MENTHOL LOZENGE PO PRN (10:15)
[2023-12-13] MEDS ORDERED: BACITRACIN 28 GM OINTMENT TP PRN (10:15)
[2023-12-13] MEDS ORDERED: DOCUSATE SODIUM 100 MG CAPSULE PO PRN (10:15)
[2023-12-13] MEDS ORDERED: ONDANSETRON HCL 4 MG TABLET PO PRN (10:15)
[2023-12-13] MEDS: BusPIRone HCL 10 MG TABLET PO SCH (17:30)
[2023-12-13] MEDS: QUEtiapine FUMARATE 100 MG TABLET PO PRN (17:33)
[2023-12-13] MEDS: TraZODone HCL 50 MG TABLET PO SCH (20:58)
[2023-12-13] MEDS: RisperiDONE 1 MG TABLET PO SCH (20:58)
[2023-12-13 22:25] VITALS: BP 114/71; PULSE 83; RESP 18; TEMP 98.1
[2023-12-14] MEDS: SERTRALINE HCL 50 MG TABLET PO SCH (08:01)
[2023-12-14 08:59] VITALS: BP 121/75; PULSE 87; RESP 18; TEMP 97.9
[2023-12-14 20:40] VITALS: BP 119/70; PULSE 60; RESP 18; TEMP 98.7
[2023-12-15 10:51] VITALS: BP 114/71; PULSE 80; RESP 18; TEMP 98.1
[2023-12-15 21:50] VITALS: BP 115/79; PULSE 62; RESP 18; TEMP 98.2
[2023-12-16 09:00] VITALS: BP 112/85; PULSE 74; RESP 18; TEMP 97.1
[2023-12-16] MEDS ORDERED: APIXABAN 5 MG TABLET PO SCH (09:00)
[2023-12-16 21:13] VITALS: BP 114/78; PULSE 62; RESP 18; TEMP 98.1
[2023-12-17 08:00] VITALS: BP 105/67; PULSE 92; RESP 18; TEMP 97.3
[2023-12-17 21:47] VITALS: BP 111/68; PULSE 58; RESP 17; TEMP 98.2
[2023-12-18 15:20] VITALS: BP 129/76; PULSE 64; RESP 18; TEMP 97.9
[2023-12-18 21:28] VITALS: BP 107/68; PULSE 77; RESP 18; TEMP 97.3
[2023-12-19 11:05] VITALS: BP 110/59; PULSE 77; RESP 18; TEMP 97.5
[2023-12-19 20:54] VITALS: BP 112/69; PULSE 63; RESP 18; TEMP 98
[2023-12-20] MEDS ORDERED: GABA-1181 PO (07:54)
[2023-12-20] MEDS ORDERED: RISP-31 PO (07:56)
[2023-12-20] MEDS ORDERED: SERT-158 PO (07:56)
[2023-12-20] MEDS ORDERED: BUSP10TA23 PO (07:57)
[2023-12-20] MEDS ORDERED: TRAZ-252 PO (07:58)
[2023-12-20 08:50] VITALS: BP 108/72; PULSE 66; RESP 18; TEMP 97
== END 2023-12-20 09:15 | disposition home or self-care (01) | DRG 753 ==
LOC: EMS 03:50 → 3EI 11:43
PROVIDERS: ADMIT Psychiatry & Neurology Child & Adolescent Psychiatry; ATTEND Psychiatry & Neurology Child & Adolescent Psychiatry
DX: F31.4 Bipolar disorder, current episode depressed, severe, without psychotic features (principal); R45.851 Suicidal ideations; Z91.148 Patient's other noncompliance with medication regimen for other reason; F10.10 Alcohol abuse, uncomplicated; I10 Essential (primary) hypertension; I48.91 Unspecified atrial fibrillation; N40.0 Benign prostatic hyperplasia without lower urinary tract symptoms; J44.9 Chronic obstructive pulmonary disease, unspecified; G47.00 Insomnia, unspecified; F41.9 Anxiety disorder, unspecified; F20.9 Schizophrenia, unspecified; Z20.822 Contact with and (suspected) exposure to COVID-19; K59.00 Constipation, unspecified; E87.6 Hypokalemia; Z79.899 Other long term (current) drug therapy; Z95.5 Presence of coronary angioplasty implant and graft; Z79.01 Long term (current) use of anticoagulants
CPT/HCPCS: 80048; 80307; 81003; 84132; 85025; 99285; G0480

== ENCOUNTER 2024-05-20 09:47 | Inpatient (IN) | payer MEDICAID, OTHER ==
[~2024-05-20] VITALS: Ht 185.4 cm; Wt 76.5 kg
[~2024-05-20 09:47] MED LIST changes: +METO25 PO; +RISP-31 PO; -RISP1TAB48 PO; +SERT-158 PO; -SERT-439 PO
[2024-05-20] MEDS ORDERED: ATOR20TA65 PO (11:24)
[2024-05-20] MEDS ORDERED: GABA-1404 PO (11:24)
[2024-05-20] MEDS ORDERED: PANT40TA54 PO (11:24)
[2024-05-20] MEDS ORDERED: QUET200T30 PO (11:24)
[2024-05-20] MEDS: LORazepam 2 MG TABLET PO ONE (11:28)
[2024-05-20 11:39] LABS: COVID AG,FIA SOURCE NASAL SWAB
[2024-05-20 11:49] LABS: APPEARANCE,URINE CLEAR (CLEAR); BILIRUBIN,URINE NEGATIVE (NEGATIVE); COLOR,URINE LIGHT YELLOW (YELLOW); GLUCOSE, URINE (UA) NEGATIVE (NEGATIVE); LEUKOCYTE ESTERASE ,URINE NEGATIVE (NEGATIVE); NITRATE,URINE NEGATIVE (NEGATIVE); OCCULT BLOOD,URINE NEGATIVE (NEGATIVE); PH,URINE 5.5 (5.0-8.0); PH,URINE DRUG SCREEN 5.5 (5.0-8.0); PROTEIN,URINE NEGATIVE (NEGATIVE); SPECIFIC GRAVITIY, URINE 1.025 (1.003-1.030); UROBILINOGEN,URINE <=1.0 mg/dL (<=1.0)
[2024-05-20 11:56] LABS: ALCOHOL, URINE DRUG SCREEN NEGATIVE (NEGATIVE); AMPHET/METH SCREEN,URINE NEGATIVE (NEGATIVE); BARBITURATE SCREEN, URINE NEGATIVE (NEGATIVE); BENZODIAZEPINES SCREEN,URINE NEGATIVE (NEGATIVE); CANNABINOID SCREEN,URINE POSITIVE (NEGATIVE); COCAINE SCREEN,URINE NEGATIVE (NEGATIVE); METHADONE SCREEN, URINE NEGATIVE (NEGATIVE); OPIATE SCREEN,URINE NEGATIVE (NEGATIVE); PHENCYCLIDINE SCREEN,URINE NEGATIVE (NEGATIVE)
[2024-05-20 12:12] LABS: SARS-COV2 (COVID) ANTIGEN,FIA Negative (Negative)
[2024-05-20] MEDS ORDERED: HALOPERIDOL 5 MG TABLET PO PRN (13:15)
[2024-05-20] MEDS ORDERED: ZOLPIDEM TARTRATE 10 MG TABLET PO PRN (13:15)
[2024-05-20] MEDS: LORazepam 2 MG TABLET PO PRN (14:04)
[2024-05-20 17:02] VITALS: O2SAT 97
[2024-05-20 18:15] VITALS: BP 133/63; PULSE 95; RESP 16; TEMP 96.5; O2SAT 97
[2024-05-20] MEDS ORDERED: BENZOCAINE/MENTHOL LOZENGE PO PRN (22:15)
[2024-05-20] MEDS ORDERED: IBUPROFEN 600 MG TABLET PO PRN (22:15)
[2024-05-20] MEDS ORDERED: CloNIDine HCL 0.1 MG TABLET PO PRN (22:15)
[2024-05-20] MEDS ORDERED: ONDANSETRON 4 MG TABLET PO PRN (22:15)
[2024-05-20] MEDS ORDERED: PETROLATUM,WHITE 28 GM JELLY TP PRN (22:15)
[2024-05-20] MEDS ORDERED: MAG HYDROX/ALUMINUM HYD/SIMETH ES 30 ML SUSPENSION UDCUP PO PRN (22:15)
[2024-05-20] MEDS ORDERED: BACITRACIN 28 GM OINTMENT TP PRN (22:15)
[2024-05-20] MEDS ORDERED: OMEPRAZOLE 20 MG CAPSULE PO PRN (22:15)
[2024-05-20] MEDS ORDERED: DOCUSATE SODIUM 100 MG CAPSULE PO PRN (22:15)
[2024-05-20] MEDS ORDERED: ACETAMINOPHEN 325 MG TABLET PO PRN (22:15)
[2024-05-20] MEDS ORDERED: MAGNESIUM HYDROXIDE SUSPENSION 30 ML UDCUP PO PRN (22:15)
[2024-05-20] MEDS ORDERED: LOPERAMIDE HCL 2 MG CAPSULE PO PRN (22:15)
[2024-05-20] MEDS ORDERED: ALBUTEROL SULFATE HFA 90 MCG/PUFF 8 GM INHALER IH PRN (22:15)
[2024-05-20 23:24] VITALS: BP 130/69; PULSE 90; RESP 16; TEMP 97; O2SAT 98
[2024-05-21] VITALS (8 sets, daily range): BP systolic 102–136; BP diastolic 58–75; PULSE 78–96; RESP 16–18; TEMP 96.7–98.2; O2SAT 95–98
[2024-05-21] MEDS: METOPROLOL TARTRATE 25 MG TABLET PO SCH (09:35)
[2024-05-21] MEDS: PANTOPRAZOLE SODIUM 40 MG DR TABLET PO SCH (09:35)
[2024-05-21] MEDS: APIXABAN 5 MG TABLET PO SCH (09:36)
[2024-05-21] MEDS: NICOTINE 21 MG/24 HOUR PATCH TD SCH (09:36)
[2024-05-21 09:51] LABS: HEMOGLOBIN A1C 5.5 % (3.8-5.6)
[2024-05-21 09:59] LABS: CHOL/HDL RATIO 3.4 (4.2-7.3)
[2024-05-21] MEDS ORDERED: LORazepam 2 MG TABLET PO PRN (13:15)
[2024-05-21] MEDS ORDERED: GuaiFENesin/D-METHORPHAN [SUGAR-FREE] 200-20MG/10 ML SYRUP UDCUP PO PRN (13:15)
[2024-05-21] MEDS ORDERED: PROMETHAZINE HCL 25 MG TABLET PO PRN (13:15)
[2024-05-21] MEDS ORDERED: MAG HYDROX/ALUMINUM HYD/SIMETH ES 30 ML SUSPENSION UDCUP PO PRN (13:15)
[2024-05-21] MEDS ORDERED: TUBERCULIN, PURIFIED PROTEIN DERIVATIVE 5 TU/0.1 ML SYRINGE ID ONE (13:15)
[2024-05-21] MEDS ORDERED: OLANZapine 5 MG RAPDIS TABLET PO PRN (13:15)
[2024-05-21] MEDS ORDERED: MAGNESIUM HYDROXIDE SUSPENSION 30 ML UDCUP PO PRN (13:15)
[2024-05-21] MEDS ORDERED: LOPERAMIDE HCL 2 MG CAPSULE PO PRN ×2 (13:15)
[2024-05-21] MEDS: CYANOCOBALAMIN 1,000 MCG/ML VIAL IM ONE (15:49)
[2024-05-21] MEDS: THIAMINE 100 MG TABLET PO SCH (16:22)
[2024-05-21] MEDS: ATORVASTATIN CALCIUM 20 MG TABLET PO SCH (20:32)
[2024-05-21] MEDS: MELATONIN 5 MG TABLET PO SCH (20:32)
[2024-05-21] MEDS: QUEtiapine FUMARATE 200 MG TABLET PO ONE (20:33)
[2024-05-21] MEDS ORDERED: OLANZapine 5 MG RAPDIS TABLET PO SCH (21:00)
[2024-05-22] VITALS (7 sets, daily range): BP systolic 110–127; BP diastolic 69–73; PULSE 78–84; RESP 16–18; TEMP 97–97.8; O2SAT 94–98
[2024-05-22] MEDS ORDERED: LORazepam 2 MG TABLET PO PRN (07:00)
[2024-05-22] MEDS: FOLIC ACID 1 MG TABLET PO SCH (08:49)
[2024-05-22] MEDS: LORazepam 2 MG TABLET PO SCH (08:50)
[2024-05-22] MEDS: NALTREXONE HCL 50 MG TABLET PO SCH (08:50)
[2024-05-22] MEDS: MULTIVITAMINS WITH MINERALS, THERAPEUTIC TABLET PO SCH (08:50)
[2024-05-22] MEDS: FLUoxetine HCL 20 MG CAPSULE PO SCH (09:34)
[2024-05-22] MEDS: QUEtiapine FUMARATE 200 MG TABLET PO SCH (21:06)
[2024-05-23 08:00] VITALS: BP 109/74; PULSE 91; RESP 16; TEMP 97.2; O2SAT 96
[2024-05-23 20:46] VITALS: BP 122/86; PULSE 68; RESP 17; TEMP 97.1; O2SAT 98
[2024-05-24] MEDS ORDERED: LORazepam 1 MG TABLET PO PRN (07:00)
[2024-05-24 08:10] VITALS: BP 135/71; PULSE 80; RESP 17; TEMP 96.7; O2SAT 95
[2024-05-24] MEDS ORDERED: LORazepam 1 MG TABLET PO SCH (09:00)
[2024-05-24] MEDS: HydrOXYzine PAMOATE 50 MG CAPSULE PO PRN (13:49)
[2024-05-24 20:09] VITALS: BP 137/88; PULSE 71; RESP 18; TEMP 97.7; O2SAT 95
[2024-05-25] MEDS ORDERED: LORazepam 1 MG TABLET PO PRN (07:00)
[2024-05-25 08:54] VITALS: BP 116/87; PULSE 94; RESP 18; TEMP 97.7; O2SAT 96
[2024-05-25 20:44] VITALS: BP 116/82; PULSE 67; RESP 16; TEMP 98; O2SAT 97
[2024-05-26 08:26] VITALS: BP 122/74; PULSE 77; RESP 18; TEMP 97.7; O2SAT 96
[2024-05-26 20:11] VITALS: BP 150/94; PULSE 68; RESP 18; TEMP 96.8; O2SAT 98
[2024-05-27 08:16] VITALS: BP 132/70; PULSE 93; RESP 17; TEMP 97.7; O2SAT 96
== END 2024-05-27 13:40 | disposition home or self-care (01) | DRG 750 ==
LOC: EMS 09:55 → B2S 15:27
PROVIDERS: ADMIT Psychiatry & Neurology Psychiatry; ATTEND Psychiatry & Neurology Psychiatry
PROC: GZ56ZZZ Individual Psychotherapy, Supportive (ICD-10-PCS; principal; 2024-05-24)
DX: F20.9 Schizophrenia, unspecified (principal); R45.851 Suicidal ideations; F12.10 Cannabis abuse, uncomplicated; F41.9 Anxiety disorder, unspecified; G47.00 Insomnia, unspecified; I25.10 Atherosclerotic heart disease of native coronary artery without angina pectoris; Z20.822 Contact with and (suspected) exposure to COVID-19; F19.10 Other psychoactive substance abuse, uncomplicated; I48.91 Unspecified atrial fibrillation; K21.9 Gastro-esophageal reflux disease without esophagitis; K59.00 Constipation, unspecified; Z79.01 Long term (current) use of anticoagulants; Z87.891 Personal history of nicotine dependence; Z95.5 Presence of coronary angioplasty implant and graft; Z88.8 Allergy status to other drugs, medicaments and biological substances
CPT/HCPCS: 80061; 80307; 81003; 83036; 87081; J3420

== ENCOUNTER 2024-08-14 20:58 | Inpatient (IN) | payer MEDICAID ==
[~2024-08-14] VITALS: Ht 185.4 cm; Wt 79.6 kg
[~2024-08-14 20:58] MED LIST changes: -ATOR10TA69 PO; +ATOR20TA65 PO; -BUSP10TA23 PO; -GABA-1181 PO; +GABA-1404 PO; +PANT40TA54 PO; +QUET200T30 PO; -TAMS0.4C94 PO; -TRAZ-252 PO
[2024-08-14] MEDS ORDERED: ZOLPIDEM TARTRATE 10 MG TABLET PO PRN (21:30)
[2024-08-14 22:29] VITALS: BP 125/81; PULSE 82; RESP 17; TEMP 97.9; O2SAT 98
[2024-08-14] MEDS: QUEtiapine FUMARATE 100 MG TABLET PO PRN (23:30)
[2024-08-15 00:28] VITALS: BP 135/88; PULSE 86; RESP 18; TEMP 98.1; O2SAT 95
[2024-08-15] MEDS ORDERED: PETROLATUM,WHITE 28 GM JELLY TP PRN (06:45)
[2024-08-15] MEDS ORDERED: GuaiFENesin/D-METHORPHAN [SUGAR-FREE] 200-20MG/10 ML SYRUP UDCUP PO PRN (06:45)
[2024-08-15] MEDS ORDERED: LOPERAMIDE HCL 2 MG CAPSULE PO PRN (06:45)
[2024-08-15] MEDS ORDERED: MAG HYDROX/ALUMINUM HYD/SIMETH ES 30 ML SUSPENSION UDCUP PO PRN (06:45)
[2024-08-15] MEDS ORDERED: CloNIDine HCL 0.1 MG TABLET PO PRN (06:45)
[2024-08-15] MEDS ORDERED: ONDANSETRON 4 MG TABLET PO PRN (06:45)
[2024-08-15] MEDS ORDERED: MAGNESIUM HYDROXIDE SUSPENSION 30 ML UDCUP PO PRN (06:45)
[2024-08-15] MEDS ORDERED: NICOTINE 14 MG/24 HOUR PATCH TD PRN (06:45)
[2024-08-15] MEDS ORDERED: ALBUTEROL SULFATE HFA 90 MCG/PUFF 8 GM INHALER IH PRN (06:45)
[2024-08-15] MEDS ORDERED: DOCUSATE SODIUM 100 MG CAPSULE PO PRN (06:45)
[2024-08-15] MEDS: LORazepam 2 MG TABLET PO PRN (08:04)
[2024-08-15] MEDS: PANTOPRAZOLE SODIUM 40 MG DR TABLET PO SCH (08:05)
[2024-08-15] MEDS: APIXABAN 5 MG TABLET PO SCH (08:05)
[2024-08-15] MEDS: METOPROLOL TARTRATE 25 MG TABLET PO SCH (08:05)
[2024-08-15 08:31] LABS: BASOPHILS % (AUTO) 0.5 % (0.0-2.0); EOSINOPHILS % (AUTO) 4.2 % (1.0-6.0); HEMATOCRIT 40.7 % (41-53); HEMOGLOBIN 14.2 g/dL (13.5-17.5); LYMPHOCYTES # (AUTO) 1.2 K/uL (1.0-4.8); LYMPHOCYTES % (AUTO) 21.1 % (22.0-44.0); MEAN CORPUSCULAR HEMOGLOBIN 31.7 pg (26.0-34.0); MEAN CORPUSCULAR HGB CONC 34.9 G/dL (31.0-37.0); MEAN CORPUSCULAR VOLUME 91 fL (80-100); MONOCYTES # (AUTO) 0.5 K/uL (0.1-1.0); MONOCYTES % (AUTO) 8.5 % (2.0-9.0); NEUTROPHILS # (AUTO) 3.8 K/uL (1.8-7.7); NEUTROPHILS % (AUTO) 65.7 % (40.0-70.0); PLATELET COUNT (AUTO) 243 K/uL (150-450); RED BLOOD CELL COUNT(AUTO) 4.48 MIL/uL (4.50-5.90); RED CELL DISTRIBUTION WIDTH 13.4 % (11.5-14.5); WHITE BLOOD COUNT (AUTO) 5.8 K/uL (4.5-11.0)
[2024-08-15 08:42] LABS: HEMOGLOBIN A1C 5.2 % (3.8-5.6)
[2024-08-15 08:50] LABS: ALANINE AMINOTRANSFERASE 31 U/L (12-78); ALBUMIN 3.8 g/dL (3.4-5.0); ALKALINE PHOSPHATASE 85 U/L (46-116); ANION GAP 12 mmol/L (8-16); ASPARTATE AMINOTRANSFERASE 23 U/L (15-37); BILIRUBIN,TOTAL 0.6 mg/dL (0.1-1.0); CALCIUM, TOTAL 9.3 mg/dL (8.8-10.5); CARBON DIOXIDE 25 mmol/L (22-29); CHLORIDE 108 mmol/L (98-107); CHOL/HDL RATIO 1.7 (4.2-7.3); CHOLESTEROL 101 mg/dL (131-200); CREATININE 0.74 mg/dL (0.60-1.30); GLOMERULAR FILTR. RATE CALC > 60 mL/min (>60); GLUCOSE,RANDOM 100 mg/dL (70-110); HDL CHOLESTEROL 58 mg/dL (40-60); LDL CHOL (CALC.) 32 mg/dL (0-130); POTASSIUM 3.8 mmol/L (3.5-5.1); SODIUM SERUM 145 mmol/L (136-145); TRIGLYCERIDES 55 mg/dL (15-150); UREA NITROGEN, BLOOD 14 mg/dL (7-18)
[2024-08-15 09:22] VITALS: BP 122/74; PULSE 86; RESP 16; TEMP 97.2; O2SAT 99
[2024-08-15] MEDS: SERTRALINE HCL 50 MG TABLET PO SCH (12:43)
[2024-08-15] MEDS: RisperiDONE 1 MG TABLET PO SCH (12:43)
[2024-08-15] MEDS ORDERED: QUET300T2 PO (17:01)
[2024-08-15] MEDS: ATORVASTATIN CALCIUM 40 MG TABLET PO SCH (20:27)
[2024-08-15] MEDS: QUEtiapine FUMARATE 300 MG TABLET PO SCH (20:27)
[2024-08-15] MEDS ORDERED: ATORVASTATIN CALCIUM 20 MG TABLET PO SCH (21:00)
[2024-08-15 21:40] VITALS: BP 118/70; PULSE 77; RESP 18; TEMP 98.7; O2SAT 95
[2024-08-16 08:40] VITALS: BP 123/75; PULSE 87; RESP 16; TEMP 98.2; O2SAT 96
[2024-08-16] MEDS: LITHIUM CARBONATE 300 MG TABLET PO SCH (09:41)
[2024-08-16] MEDS: OLANZapine 10 MG TABLET PO SCH (09:42)
[2024-08-16] MEDS: TAMSULOSIN HCL 0.4 MG CAPSULE PO SCH (09:42)
[2024-08-16] MEDS: QUEtiapine FUMARATE 200 MG TABLET PO SCH (09:43)
[2024-08-16 17:51] VITALS: BP 104/68; PULSE 84
[2024-08-17 03:45] VITALS: BP 118/70; PULSE 88; RESP 20; TEMP 97.9; O2SAT 98
[2024-08-17 08:15] LABS: HEMOGLOBIN A1C 5.2 % (3.8-5.6)
[2024-08-17] MEDS: OLANZapine 5 MG RAPDIS TABLET PO PRN (08:17)
[2024-08-17 08:34] LABS: THYROID STIMULATING HORMONE 2.45 uIU/mL (0.36-3.74)
[2024-08-17 08:48] LABS: APPEARANCE,URINE CLEAR (CLEAR); BILIRUBIN,URINE NEGATIVE (NEGATIVE); COLOR,URINE LIGHT YELLOW (YELLOW); GLUCOSE, URINE (UA) NEGATIVE (NEGATIVE); KETONES,URINE NEGATIVE (NEGATIVE); LEUKOCYTE ESTERASE ,URINE NEGATIVE (NEGATIVE); NITRATE,URINE NEGATIVE (NEGATIVE); OCCULT BLOOD,URINE NEGATIVE (NEGATIVE); PROTEIN,URINE NEGATIVE (NEGATIVE); SPECIFIC GRAVITIY, URINE 1.009 (1.003-1.030); UROBILINOGEN,URINE <=1.0 mg/dL (<=1.0)
[2024-08-17 08:59] LABS: AMPHET/METH SCREEN,URINE NEGATIVE (NEGATIVE); BARBITURATE SCREEN, URINE NEGATIVE (NEGATIVE); BENZODIAZEPINES SCREEN,URINE NEGATIVE (NEGATIVE); CANNABINOID SCREEN,URINE NEGATIVE (NEGATIVE); COCAINE SCREEN,URINE NEGATIVE (NEGATIVE); METHADONE SCREEN, URINE NEGATIVE (NEGATIVE); OPIATE SCREEN,URINE NEGATIVE (NEGATIVE); PHENCYCLIDINE SCREEN,URINE NEGATIVE (NEGATIVE)
[2024-08-17 09:03] VITALS: BP 122/76; PULSE 98; RESP 18; TEMP 97.4; O2SAT 97
[2024-08-17 09:03] LABS: ALCOHOL, URINE DRUG SCREEN NEGATIVE (NEGATIVE)
[2024-08-17] MEDS: IBUPROFEN 400 MG TABLET PO PRN (21:20)
[2024-08-17 21:41] VITALS: BP 116/72; PULSE 86; RESP 18; TEMP 97.6; O2SAT 98
[2024-08-17 21:45] VITALS: RESP 18; O2SAT 98
[2024-08-17 22:45] VITALS: RESP 18
[2024-08-18 08:52] VITALS: BP 132/89; PULSE 62; RESP 18; TEMP 97.6; O2SAT 62; O2SAT 96
[2024-08-18 16:31] VITALS: BP 136/86; PULSE 78; RESP 18
[2024-08-18] MEDS: ACETAMINOPHEN 325 MG TABLET PO PRN (20:04)
[2024-08-18 20:20] VITALS: BP 138/83; PULSE 78; RESP 18; TEMP 98.4; O2SAT 98
[2024-08-18 21:04] VITALS: RESP 18
[2024-08-19 09:37] VITALS: BP 132/84; PULSE 86; RESP 17; TEMP 97.5; O2SAT 98
[2024-08-19 20:15] VITALS: BP 142/82; PULSE 80; RESP 17; TEMP 98.6; O2SAT 96
[2024-08-20 06:08] VITALS: BP 127/83; PULSE 88; RESP 18; TEMP 97.7; O2SAT 96
[2024-08-20 08:38] VITALS: BP 123/72; PULSE 99; RESP 16; TEMP 97.3; O2SAT 95
[2024-08-20] MEDS: INFLUENZA VIRUS VACCINE TVS (6MO+) 2024-25/PF 45 MCG/0.5 ML SYRINGE IM. ONE (18:42)
[2024-08-20] MEDS: PNEUMOCOCCAL VACCINE POLYVALENT 0.5 ML SYRINGE [PPSV23] IM. ONE (18:42)
[2024-08-20 20:53] VITALS: BP 130/78; PULSE 73; RESP 17; TEMP 98.1; O2SAT 97
[2024-08-21 08:30] VITALS: BP 147/90; PULSE 89; RESP 17; TEMP 97.5; O2SAT 98
[2024-08-21 20:40] VITALS: BP 120/80; PULSE 80; RESP 18; TEMP 98.3; O2SAT 96
[2024-08-22 08:09] VITALS: BP 133/73; PULSE 73; RESP 18; TEMP 98.7; O2SAT 97
[2024-08-22 20:25] VITALS: BP 115/80; PULSE 71; RESP 18; TEMP 98.8; O2SAT 95
[2024-08-23 09:19] VITALS: BP 127/83; PULSE 84; RESP 18; TEMP 96.9; O2SAT 100
[2024-08-23 14:50] VITALS: RESP 18
[2024-08-23 15:50] VITALS: RESP 18
[2024-08-23 20:15] VITALS: BP 135/80; PULSE 73; RESP 17; TEMP 98.3; O2SAT 95
[2024-08-24 08:35] VITALS: BP 102/50; PULSE 103; RESP 18; TEMP 98; O2SAT 97
[2024-08-24 16:00] VITALS: BP 143/71; PULSE 72; RESP 16; TEMP 97.7; O2SAT 96
[2024-08-24 18:31] VITALS: BP 119/81; PULSE 72; RESP 16; TEMP 98.5; O2SAT 98
[2024-08-24 20:00] VITALS: BP 143/71; PULSE 72; RESP 17; TEMP 97.7; O2SAT 100
[2024-08-25 08:46] VITALS: BP 126/74; PULSE 70; RESP 16; TEMP 97.6; O2SAT 98
[2024-08-25 20:28] VITALS: BP 128/75; PULSE 100; RESP 16; TEMP 98; O2SAT 97
[2024-08-26 08:48] VITALS: BP 103/72; PULSE 154; RESP 16; TEMP 94.3; O2SAT 95
[2024-08-26 10:40] VITALS: BP 97/54; PULSE 68; RESP 16; TEMP 95; O2SAT 95
[2024-08-26 12:28] VITALS: BP 114/74; PULSE 71; RESP 16; TEMP 97.1; O2SAT 97
[2024-08-26 21:19] VITALS: BP 137/93; PULSE 100; RESP 16; TEMP 98; O2SAT 95
[2024-08-27 07:45] VITALS: BP 106/73; PULSE 59; RESP 17; TEMP 98; O2SAT 89
[2024-08-27 17:38] VITALS: RESP 16
[2024-08-27 20:12] VITALS: BP 113/67; PULSE 85; RESP 17; TEMP 98; O2SAT 97
[2024-08-28 08:05] VITALS: BP 120/76; PULSE 66; RESP 18; TEMP 97.9; O2SAT 96
[2024-08-28 20:07] VITALS: BP 106/62; PULSE 75; RESP 18; TEMP 98; O2SAT 98
[2024-08-29 08:51] VITALS: BP 122/55; PULSE 86; RESP 18; TEMP 97; O2SAT 97
[2024-08-29 20:28] VITALS: BP 105/61; PULSE 70; RESP 17; TEMP 97.5; O2SAT 95
[2024-08-30 09:08] VITALS: BP 131/90; PULSE 73; RESP 16; TEMP 97.3; O2SAT 97
[2024-08-30 20:00] VITALS: BP 96/55; PULSE 155; RESP 16; TEMP 98.3; O2SAT 95
[2024-08-30 20:55] VITALS: BP 85/57; PULSE 153; RESP 18; TEMP 98.8; O2SAT 96
[2024-08-30 20:56] VITALS: BP 108/60; RESP 20; O2SAT 96
[2024-08-31 08:49] VITALS: BP 116/79; PULSE 80; RESP 16; TEMP 98.3; O2SAT 99
[2024-08-31] MEDS ORDERED: ATOR40TA28 PO (12:41)
[2024-08-31] MEDS ORDERED: TAMS0.4C94 PO ×2 (12:44→16:37)
[2024-08-31] MEDS ORDERED: QUET200T30 PO (16:37)
[2024-08-31] MEDS ORDERED: LITH300T PO (16:37)
[2024-08-31] MEDS ORDERED: ATOR40TA71 PO (16:37)
[2024-08-31] MEDS ORDERED: QUET300T19 PO (16:37)
[2024-08-31] MEDS ORDERED: SERT-158 PO (16:37)
[2024-08-31] MEDS ORDERED: APIX5TAB PO (16:37)
[2024-08-31] MEDS ORDERED: METO25 PO (16:37)
== END 2024-08-31 15:40 | disposition home or self-care (01) | DRG 750 ==
LOC: B2S 21:27 → UNDODISIN 08-25 13:00
PROVIDERS: ADMIT Psychiatry & Neurology Psychiatry; ATTEND Psychiatry & Neurology Psychiatry
PROC: GZHZZZZ Group Psychotherapy (ICD-10-PCS; principal; 2024-08-15)
PROC: GZ51ZZZ Individual Psychotherapy, Behavioral (ICD-10-PCS; 2024-08-15)
DX: F25.1 Schizoaffective disorder, depressive type (principal); R45.851 Suicidal ideations; I48.20 Chronic atrial fibrillation, unspecified; Z72.0 Tobacco use; K21.9 Gastro-esophageal reflux disease without esophagitis; I10 Essential (primary) hypertension; E78.5 Hyperlipidemia, unspecified; K59.00 Constipation, unspecified; F41.9 Anxiety disorder, unspecified; G47.00 Insomnia, unspecified; Z59.00 Homelessness unspecified; Z79.01 Long term (current) use of anticoagulants; Z79.899 Other long term (current) drug therapy; Z91.010 Allergy to peanuts
CPT/HCPCS: 80053; 80061; 80178; 80307; 81003; 83036; 84443; 85025; 86592

== ENCOUNTER 2025-02-23 19:55 | Inpatient (IN) | payer MEDICAID, OTHER ==
[~2025-02-23] VITALS: Ht 188 cm; Wt 74.0 kg
[~2025-02-23 19:55] MED LIST changes: -ATOR20TA65 PO; +ATOR40TA28 PO; +ATOR40TA71 PO; -GABA-1404 PO; +LITH300T PO; +QUET300T19 PO; -RISP-31 PO; +TAMS0.4C94 PO
[2025-02-23 20:59] LABS: COVID AG,FIA SOURCE NASAL SWAB
[2025-02-23 21:25] LABS: SARS-COV2 (COVID) ANTIGEN,FIA Negative (Negative)
[2025-02-23 21:27] LABS: RED BLOOD CELL COUNT(AUTO) 4.56 MIL/uL (4.50-5.90); RED CELL DISTRIBUTION WIDTH 13.7 % (11.5-14.5); WHITE BLOOD COUNT (AUTO) 6.3 K/uL (4.5-11.0)
[2025-02-23 21:36] LABS: CALCIUM, TOTAL 8.7 mg/dL (8.8-10.5); CREATININE 0.60 mg/dL (0.60-1.30); GLOMERULAR FILTR. RATE CALC > 60 mL/min (>60); GLUCOSE,RANDOM 67 mg/dL (70-110); SODIUM SERUM 140 mmol/L (136-145); UREA NITROGEN, BLOOD 21 mg/dL (7-18)
[2025-02-23 21:46] LABS: PLATELET COUNT (AUTO) 187 K/uL (150-450); PLATELET MORPHOLOGY COMMENT LARGE PLTS PRESENT; RBC MORPHOLOGY COMMENT NORMAL RBC MORPH
[2025-02-24 02:28] VITALS: O2SAT 96
[2025-02-24 04:39] VITALS: BP 123/70; PULSE 66; RESP 18; TEMP 98.1; O2SAT 100
[2025-02-24] MEDS ORDERED: INFLUENZA VIRUS VACCINE TVS (6MO+) 2025-26/PF 45 MCG/0.5 ML SYRINGE IM. ONE (06:30)
[2025-02-24 08:19] VITALS: BP 107/82; PULSE 82; RESP 17; TEMP 98.2; O2SAT 95
[2025-02-24] MEDS ORDERED: PETROLATUM,WHITE 28 GM JELLY TP PRN (12:00)
[2025-02-24] MEDS ORDERED: GuaiFENesin/D-METHORPHAN [SUGAR-FREE] 200-20MG/10 ML SYRUP UDCUP PO PRN (12:00)
[2025-02-24] MEDS ORDERED: MAG HYDROX/ALUMINUM HYD/SIMETH ES 30 ML SUSPENSION UDCUP PO PRN (12:00)
[2025-02-24] MEDS ORDERED: MAGNESIUM HYDROXIDE SUSPENSION 30 ML UDCUP PO PRN (12:00)
[2025-02-24] MEDS ORDERED: IBUPROFEN 400 MG TABLET PO PRN (12:00)
[2025-02-24] MEDS ORDERED: NICOTINE 14 MG/24 HOUR PATCH TD PRN (12:00)
[2025-02-24] MEDS ORDERED: ONDANSETRON 4 MG TABLET PO PRN (12:00)
[2025-02-24] MEDS ORDERED: LOPERAMIDE HCL 2 MG CAPSULE PO PRN (12:00)
[2025-02-24] MEDS ORDERED: ALBUTEROL SULFATE HFA 90 MCG/PUFF 8 GM INHALER IH PRN (12:00)
[2025-02-24] MEDS: LITHIUM CARBONATE 300 MG TABLET PO SCH (16:21)
[2025-02-24] MEDS: APIXABAN 5 MG TABLET PO SCH (17:23)
[2025-02-24] MEDS: ACETAMINOPHEN 325 MG TABLET PO PRN (18:23)
[2025-02-24 18:30] VITALS: TEMP 101
[2025-02-24 20:22] VITALS: BP 109/77; PULSE 83; RESP 17; TEMP 99; O2SAT 97
[2025-02-24] MEDS: ATORVASTATIN CALCIUM 40 MG TABLET PO SCH (20:32)
[2025-02-24] MEDS: ZOLPIDEM TARTRATE 10 MG TABLET PO PRN (20:33)
[2025-02-24 21:02] VITALS: TEMP 99
[2025-02-25 07:50] LABS: GLUCOMETER DEV NAME(LOC) POC.BV; POC SARS-COV2 AG, FIA NEGATIVE (NEGATIVE)
[2025-02-25 08:39] VITALS: BP 119/75; PULSE 90; RESP 17; TEMP 98; O2SAT 93
[2025-02-25] MEDS: TAMSULOSIN HCL 0.4 MG CAPSULE PO SCH (09:58)
[2025-02-25] MEDS: SERTRALINE HCL 50 MG TABLET PO SCH (09:58)
[2025-02-25] MEDS: METOPROLOL TARTRATE 25 MG TABLET PO SCH (09:58)
[2025-02-25] MEDS: DOCUSATE SODIUM 100 MG CAPSULE PO PRN (10:00)
[2025-02-25 20:00] VITALS: BP 91/67; PULSE 64; RESP 18; TEMP 98.3; O2SAT 95
[2025-02-26 08:04] VITALS: BP 104/71; PULSE 81; RESP 16; TEMP 97.5; O2SAT 98
[2025-02-26 20:35] VITALS: BP 96/59; PULSE 80; RESP 18; TEMP 98.3; O2SAT 96
[2025-02-27 08:28] VITALS: BP 100/65; PULSE 73; RESP 18; TEMP 97.6; O2SAT 98
[2025-02-27 17:50] VITALS: BP 110/75; PULSE 75; RESP 17; TEMP 97.5; O2SAT 97
[2025-02-27 21:14] VITALS: BP 110/71; PULSE 71; RESP 16; TEMP 98.5; O2SAT 95
[2025-02-28 09:17] LABS: CHOL/HDL RATIO 2.5 (4.2-7.3); LDL CHOL (CALC.) 46.0 mg/dL (0-130)
[2025-02-28 09:25] VITALS: BP 105/64; PULSE 81; RESP 17; TEMP 97.2; O2SAT 96
[2025-02-28 15:07] VITALS: BP 112/67
[2025-02-28 20:17] VITALS: BP 115/60; PULSE 93; RESP 18; TEMP 97.7; O2SAT 95
[2025-03-01 08:30] VITALS: BP 111/64; PULSE 72; RESP 16; TEMP 98.5; O2SAT 96
[2025-03-01 20:22] VITALS: BP 125/83; PULSE 70; RESP 17; TEMP 98.2; O2SAT 98
[2025-03-02 08:59] VITALS: BP 105/67; PULSE 78; RESP 18; TEMP 98.4; O2SAT 100
[2025-03-02 20:15] VITALS: BP 108/76; PULSE 67; RESP 17; TEMP 98.1; O2SAT 96
[2025-03-03 08:21] VITALS: BP 100/62; PULSE 69; RESP 17; TEMP 97.2; O2SAT 97
[2025-03-03 20:15] VITALS: BP 113/84; PULSE 74; RESP 17; TEMP 99.4; O2SAT 97
[2025-03-04] VITALS (10 sets, daily range): BP systolic 97–134; BP diastolic 66–83; PULSE 64–90; RESP 15–18; TEMP 93.4–98.8; O2SAT 95–100
[2025-03-05 08:10] VITALS: BP 101/77; PULSE 77; RESP 18; TEMP 98.4; O2SAT 96
[2025-03-05 10:02] VITALS: BP 101/77; PULSE 77; RESP 18; TEMP 98.4; O2SAT 96
[2025-03-05 20:15] VITALS: BP 122/70; PULSE 78; RESP 17; TEMP 98.3; O2SAT 98
[2025-03-05] MEDS ORDERED: MIRTAZAPINE 15 MG TABLET PO SCH (21:00)
[2025-03-06 00:05] VITALS: BP 122/70; PULSE 78; RESP 17; TEMP 98.3; O2SAT 98
[2025-03-06] MEDS ORDERED: METO25 PO (08:08)
[2025-03-06] MEDS ORDERED: SERT-439 PO (08:08)
[2025-03-06 08:15] VITALS: BP 117/78; PULSE 89; RESP 18; TEMP 97.7; O2SAT 97
== END 2025-03-06 12:51 | disposition home or self-care (01) | DRG 761 ==
LOC: EMS 19:55 → B2S 02-24 03:06
PROVIDERS: ADMIT Psychiatry & Neurology Child & Adolescent Psychiatry; ATTEND Psychiatry & Neurology Child & Adolescent Psychiatry
PROC: GZ58ZZZ Individual Psychotherapy, Cognitive-Behavioral (ICD-10-PCS; 2025-02-24)
PROC: GZ56ZZZ Individual Psychotherapy, Supportive (ICD-10-PCS; 2025-02-24)
PROC: GZHZZZZ Group Psychotherapy (ICD-10-PCS; principal; 2025-03-04)
DX: F25.1 Schizoaffective disorder, depressive type (principal); E78.5 Hyperlipidemia, unspecified; I10 Essential (primary) hypertension; K21.9 Gastro-esophageal reflux disease without esophagitis; F12.90 Cannabis use, unspecified, uncomplicated; F17.200 Nicotine dependence, unspecified, uncomplicated; Z20.822 Contact with and (suspected) exposure to COVID-19; N40.0 Benign prostatic hyperplasia without lower urinary tract symptoms; I48.20 Chronic atrial fibrillation, unspecified; Z79.899 Other long term (current) drug therapy; Z95.5 Presence of coronary angioplasty implant and graft
CPT/HCPCS: 71046; 80048; 80061; 80178; 83036; 84439; 84443; 85025; 90686; 99285; G0480; 36415-L1; 36415-TC; G0008

== ENCOUNTER 2025-03-05 10:51 | Emergency (ER) | payer MEDICAID, OTHER ==
[~2025-03-05] VITALS: Ht 188 cm; Wt 79.0 kg
[2025-03-05 11:01] VITALS: TEMP 97.8
[2025-03-05 12:32] VITALS: BP 128/78; PULSE 73; RESP 18; O2SAT 99
[2025-03-06] MEDS ORDERED: SERT-439 PO (08:08)
[2025-03-06] MEDS ORDERED: METO25 PO (08:08)
== END 2025-03-05 12:49 | disposition short-term general hospital (02) ==
LOC: EMS 10:51
DX: S00.83XA Contusion of other part of head, initial encounter (principal); R42 Dizziness and giddiness; F25.1 Schizoaffective disorder, depressive type; F12.90 Cannabis use, unspecified, uncomplicated; F17.210 Nicotine dependence, cigarettes, uncomplicated; Z79.01 Long term (current) use of anticoagulants; Z79.899 Other long term (current) drug therapy; Z95.5 Presence of coronary angioplasty implant and graft; W01.198A Fall on same level from slipping, tripping and stumbling with subsequent striking against other object, initial encounter; Y93.89 Activity, other specified; Y92.89 Other specified places as the place of occurrence of the external cause; Y99.8 Other external cause status
CPT/HCPCS: 70450; 99284